=== PATIENT | male | born 1995 | race Caucasian/White ===

== ENCOUNTER 2017-09-06 13:07 | Emergency (ER) | payer OTHER ==
[~2017-09-06] VITALS: Ht 180.3 cm; Wt 61.2 kg
[~2017-09-06 13:07] MED LIST: CYCLOBENZAPRINE10 MG PO; IBUPROFEN800 MG PO; NAPROSYN500 MG PO; TYLENOL325 MG PO
[2017-09-06] MEDS ORDERED: ATIVAN1 MG PO (15:55)
== END 2017-09-06 16:03 | disposition home or self-care (01) ==
LOC: ED 13:07
DX: F41.9 Anxiety disorder, unspecified (principal); F32.9 Major depressive disorder, single episode, unspecified; F17.200 Nicotine dependence, unspecified, uncomplicated
CPT/HCPCS: 80053; 80176; 81001; 84443; 85025; 99283; G0480

== ENCOUNTER 2017-09-09 00:26 | Emergency (ER) | payer OTHER ==
[~2017-09-09] VITALS: Ht 180.3 cm; Wt 66.2 kg
[~2017-09-09 00:26] MED LIST changes: +ATIVAN1 MG PO
== END 2017-09-09 03:29 | disposition home or self-care (01) ==
LOC: ED 00:26
DX: R45.851 Suicidal ideations (principal); F17.200 Nicotine dependence, unspecified, uncomplicated
CPT/HCPCS: 80053; 80176; 81001; 84443; 85025; 99284; G0480

== ENCOUNTER 2022-05-19 02:47 | Emergency (ER) | payer OTHER ==
[~2022-05-19] VITALS: Ht 180.3 cm; Wt 66.2 kg
== END 2022-05-19 04:25 | disposition home or self-care (01) ==
LOC: ED 02:47
PROC: 2W2EX4Z Dressing of Right Hand using Bandage (ICD-10-PCS; principal; 2022-05-19)
DX: T23.251A Burn of second degree of right palm, initial encounter (principal); T23.291A Burn of second degree of multiple sites of right wrist and hand, initial encounter; Z23 Encounter for immunization; X10.1XXA Contact with hot food, initial encounter
CPT/HCPCS: 16020; 90471; 90714; 99283-25; A9270

== ENCOUNTER 2022-05-22 03:33 | Emergency (ER) | payer OTHER ==
[~2022-05-22] VITALS: Ht 180.3 cm; Wt 68.0 kg
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
== END 2022-05-22 04:11 | disposition home or self-care (01) ==
LOC: ED 03:33
PROC: 2W2FX4Z Dressing of Left Hand using Bandage (ICD-10-PCS; principal; 2022-05-22)
PROC: 2W2EX4Z Dressing of Right Hand using Bandage (ICD-10-PCS; 2022-05-22)
DX: T23.252A Burn of second degree of left palm, initial encounter (principal); T23.251A Burn of second degree of right palm, initial encounter; X12.XXXA Contact with other hot fluids, initial encounter
CPT/HCPCS: 16020; 99283